=== PATIENT | female | born 1985 | race African-American/Black ===

== ENCOUNTER 2023-05-09 04:40 | Emergency (ER) | payer OTHER ==
[~2023-05-09] VITALS: Ht 157.5 cm; Wt 68.0 kg
[2023-05-09 04:40] VITALS: BP 124/82; PULSE 102; RESP 18; TEMP 98; O2SAT 98
[2023-05-09 04:50] VITALS: BP 124/82; PULSE 102; RESP 18; TEMP 98; O2SAT 98
== END 2023-05-09 04:50 ==
LOC: MED 04:40
DX: Z02.89 Encounter for other administrative examinations (principal)
CPT/HCPCS: 99283